=== PATIENT | female | born 1990 | race Two or more races ===

== ENCOUNTER 2017-08-16 19:02 | Emergency (ER) | payer OTHER ==
[~2017-08-16] VITALS: Ht 160 cm; Wt 118.0 kg
[~2017-08-16 19:02] MED LIST: ENDOCET 5-3251 EACH PO; FEOSOL325 MG PO; FERROUS SULFAT325 MG PO; FLEXERIL10 MG PO; FLOVENT 11120 INHALA IH; IBUPROFEN800 MG PO; Motrin PO; Natalcare Rx,Pramile PO; Percocet 5/325,Endoc PO; TYLENOL EXTRA500 MG PO; WOMEN'S DAILY1 EAC1 PO
[2017-08-16] MEDS ORDERED: PERCOCET 5/31 TABLET PO (19:25)
[2017-08-16] MEDS ORDERED: DIFLUCAN150 MG PO (19:25)
[2017-08-16] MEDS ORDERED: AMOXICILLIN500 MG PO (19:25)
[2017-08-16] MEDS ORDERED: FLOXIN OTIC SOLN5 ML LEFT EAR (19:25)
[2017-08-16 19:41] VITALS: BP 150/99
== END 2017-08-16 19:44 | disposition home or self-care (01) ==
LOC: EME 19:02
DX: H60.92 Unspecified otitis externa, left ear (principal)
CPT/HCPCS: 99281; 99283

== ENCOUNTER 2017-08-20 06:50 | Emergency (ER) | payer OTHER ==
[~2017-08-20] VITALS: Ht 160 cm; Wt 119.8 kg
[~2017-08-20 06:50] MED LIST changes: +AMOXICILLIN500 MG PO; +DIFLUCAN150 MG PO; +FLOXIN OTIC SOLN5 ML LEFT EAR; +PERCOCET 5/31 TABLET PO
[2017-08-20 07:23] LABS: HEMATOCRIT 38.2 % (36.0-46.0); MCHC 31.2 G/DL (30.0-36.0); MCV 83.4 FL (83-99); MEAN PLAT.VOLUME 8.9 uM^3 (9.5-12.4); PLATELET COUNT 266 K/uL (156-360); RBC DIS.WIDTH-CV 13.4 % (11.8-14.6); RBC DIS.WIDTH-SD 40.8 % (39-53); RED BLOOD COUNT 4.58 M/uL (3.80-5.20); WHITE BLOOD COUNT 7.8 K/uL (4.1-10.2)
[2017-08-20 07:47] LABS: ANION GAP 7 MEQ/L (2-14); CHLORIDE 107 MEQ/L (99-109); POTASSIUM 4.1 MEQ/L (3.7-5.4); SAMPLE HEMOLYSIS CHECK 0; SAMPLE ICTERIC CHECK 0; SAMPLE LIPEMIA CHECK 0; SODIUM 141 MEQ/L (136-147)
[2017-08-20 07:52] LABS: GFR ESTIMATE (CALCULATED) > 59 mL/min/; GLUCOSE 123 mg/dL (70-99); UREA NITROGEN (BUN) 10 mg/dL (9-23)
[2017-08-20 07:57] LABS: QUANTITATIVE HCG < 4.0 MIU/ML
[2017-08-20] MEDS ORDERED: MOTRIN800 MG PO (08:57)
[2017-08-20] MEDS ORDERED: NORCO 5/3251 TABLET PO (08:57)
[2017-08-20] MEDS ORDERED: CIPRODEX OTIC7.5 ML LEFT EAR (08:57)
[2017-08-20 09:10] VITALS: BP 147/93
== END 2017-08-20 09:26 | disposition home or self-care (01) ==
LOC: EME 06:50
PROVIDERS: Nurse Practitioner Family
DX: H60.92 Unspecified otitis externa, left ear (principal); F17.200 Nicotine dependence, unspecified, uncomplicated
CPT/HCPCS: 70450; 80048; 84702; 85027; 99281; 99284; J1885